=== PATIENT | female | born 1980 | race Caucasian/White ===

== ENCOUNTER 2017-07-12 09:57 | Emergency (ER) | payer OTHER ==
[~2017-07-12] VITALS: Ht 162.6 cm; Wt 60.0 kg
[~2017-07-12 09:57] MED LIST: ENDOCET 5-3251 EACH PO; IBUPROFEN800 MG PO; Motrin PO; Natalcare Rx,Pramile PO; Percocet 5/325,Endoc PO; Tylenol Extra Streng PO
[2017-07-12 10:32] LABS: HEMATOCRIT 41.5 % (36.0-46.0); HEMOGLOBIN 14.3 G/DL (11.9-15.5); MCH 31.8 PG (29.0-34.0); MCHC 34.5 G/DL (30.0-36.0); MCV 92.2 FL (83-99); RBC DIS.WIDTH-CV 12.2 % (11.8-14.6); RBC DIS.WIDTH-SD 41.6 % (39-53)
[2017-07-12 10:43] LABS: CHLORIDE 107 mEq/L (99-109); POTASSIUM 3.8 mEq/L (3.7-5.4); SODIUM 141 mEq/L (136-147)
[2017-07-12 10:44] LABS: GLUCOSE 99 mg/dL (70-99)
[2017-07-12 10:48] LABS: CREATININE 0.7 mg/dL (0.6-1.3); GFR ESTIMATE (CALCULATED) > 59 mL/min/
[2017-07-12 10:49] LABS: UREA NITROGEN (BUN) 11 mg/dL (9-23)
[2017-07-12 10:53] LABS: TROP-I INTERPRETATION NEGATIVE; TROPONIN-I < 0.01 ng/mL (0.0-0.30)
[2017-07-12 11:34] LABS: D-DIMER ELISA < 150.00 ng/mLDDU (<230)
[2017-07-12 11:44] LABS: QUANTITATIVE HCG < 4.0 MIU/ML
[2017-07-12 12:07] VITALS: BP 113/67
[2017-07-12 12:48] LABS: PLAT.SUFFICIENCY ADEQUATE; PLATELET COUNT 163 K/uL (156-360)
== END 2017-07-12 12:14 | disposition home or self-care (01) ==
LOC: EME 09:57
PROVIDERS: Nurse Practitioner Family
DX: R09.1 Pleurisy (principal); B34.9 Viral infection, unspecified; Z91.040 Latex allergy status
CPT/HCPCS: 71046; 80048; 84484; 84702; 85027; 85379; 93005; 99281; 99284

== ENCOUNTER 2017-07-16 11:30 | Emergency (ER) | payer OTHER ==
[~2017-07-16] VITALS: Ht 162.6 cm; Wt 59.1 kg
[2017-07-16 12:22] LABS: HEMATOCRIT 41.7 % (36.0-46.0); HEMOGLOBIN 14.3 G/DL (11.9-15.5); MCHC 34.3 G/DL (30.0-36.0); MCV 93.3 FL (83-99); PLATELET COUNT 161 K/uL (156-360); RBC DIS.WIDTH-SD 41.4 % (39-53); RED BLOOD COUNT 4.47 M/uL (3.80-5.20)
[2017-07-16 12:30] LABS: D-DIMER ELISA < 150.00 ng/mLDDU (<230)
[2017-07-16 12:32] LABS: CHLORIDE 105 mEq/L (99-109); POTASSIUM 3.5 mEq/L (3.7-5.4); SODIUM 141 mEq/L (136-147)
[2017-07-16 12:33] LABS: GLUCOSE 130 mg/dL (70-99)
[2017-07-16 12:37] LABS: CREATININE 0.7 mg/dL (0.6-1.3); GFR ESTIMATE (CALCULATED) > 59 mL/min/
[2017-07-16 12:38] LABS: UREA NITROGEN (BUN) 18 mg/dL (9-23)
[2017-07-16 12:41] LABS: TROP-I INTERPRETATION NEGATIVE; TROPONIN-I < 0.01 ng/mL (0.0-0.30)
[2017-07-16 16:18] LABS: TROP-I INTERPRETATION NEGATIVE; TROPONIN-I < 0.01 ng/mL (0.0-0.30)
[2017-07-16] MEDS ORDERED: MOTRIN800 MG PO (18:10)
[2017-07-16] MEDS ORDERED: TRAMADOL HCL50 MG PO (18:10)
[2017-07-16 18:28] VITALS: BP 139/69
== END 2017-07-16 18:29 | disposition home or self-care (01) ==
LOC: EME 11:30
PROVIDERS: Nurse Practitioner Family; Physician Assistant
DX: R07.89 Other chest pain (principal); M94.0 Chondrocostal junction syndrome [Tietze]; Z91.040 Latex allergy status
CPT/HCPCS: 71046; 71275; 80048; 84484; 85027; 85379; 93005; 99281; 99284; J1885; J7030